=== PATIENT | female | born 2000 | race African-American/Black ===

== ENCOUNTER 2020-05-20 15:53 | Emergency (ER) | payer MEDICAID, OTHER ==
[~2020-05-20] VITALS: Ht 167.6 cm; Wt 50.0 kg
[2020-05-20] MEDS ORDERED: SODIUM CHLORIDE 0.9% 1,000 ML IV ONE (17:00)
[2020-05-20 18:07] LABS: BASOPHILS % 0.3 % (0.0-2.0); HEMATOCRIT. 37.4 % (36.0-48.0); HEMOGLOBIN. 12.4 g/dL (12.0-16.0); LYMPHOCYTES % 9.2 % (20.0-50.0); MEAN CORPUSCULAR HEMOGLOBIN 28.8 pg (28.0-32.0); MEAN CORPUSCULAR VOLUME 86.7 fL (81.0-99.0); MEAN PLATELET VOLUME 9.6 fl (7.4-10.4); MONOCYTES % 3.1 % (2.0-8.0); NEUTROPHILS % 87.4 % (40.0-76.0); PLATELET 201 x1000/uL (130-400); RED BLOOD CELL COUNT 4.32 mill/uL (4.2-5.4); RED CELL DISTRIBUTION WIDTH 12.4 % (11.6-14.6)
[2020-05-20 18:15] LABS: CHLORIDE 105 mEq/L (98-107)
[2020-05-20 18:20] LABS: ETHANOL BLOOD < 10 mg/dL
[2020-05-20 18:25] LABS: HCG SCREEN NEGATIVE
[2020-05-20] MEDS ORDERED: KETOROLAC 15MG/ML VIAL IV ONE (18:45)
[2020-05-20] MEDS ORDERED: ONDANSETRON HCL 4MG/2ML INJ IV ONE (18:45)
[2020-05-20] MEDS ORDERED: FAMOTIDINE 20MG/2ML VIAL IV ONE (18:45)
[2020-05-20 19:12] LABS: CLARITY URINE CLEAR (CLEAR); COLOR URINE YELLOW (YELLOW); KETONES URINE 2+ (NEGATIVE); LEUKOCYTE ESTERASE URINE TRACE (NEGATIVE); NITRITE URINE NEGATIVE (NEGATIVE); OCCULT BLOOD URINE NEGATIVE (NEGATIVE); PH URINE >=9.0 (4.5-8.0); PROTEIN URINE TRACE (NEGATIVE); SPECIFIC GRAVITY URINE 1.019 (1.005-1.030); UROBILINOGEN URINE 0.2 E.U./dL (0.2-1.0)
[2020-05-20 19:32] LABS: *AMPHETAMINES SCREEN URINE NEGATIVE (NEGATIVE); *BARBITURATES SCREEN URINE NEGATIVE (NEGATIVE); *BENZODIAZEPINES SCREEN URINE NEGATIVE (NEGATIVE); *COCAINE SCREEN URINE NEGATIVE (NEGATIVE); PHENCYCLIDINE URINE SCREEN NEGATIVE (NEGATIVE)
[2020-05-20 19:33] LABS: METHADONE URINE SCREEN NEGATIVE (NEGATIVE); OPIATES URINE SCREEN NEGATIVE (NEGATIVE)
[2020-05-20 19:41] LABS: CANNABINOID URINE SCREEN PRESUMTIVE POSITIVE (NEGATIVE)
[2020-05-20] MEDS ORDERED: ONDANSETRON HCL 4MG/2ML INJ IV NR (20:15)
[2020-05-20] MEDS ORDERED: ONDA4TAB5 MT (21:58)
[2020-05-20] MEDS ORDERED: NITR-87 MT (21:58)
[2020-05-20 22:00] VITALS: BP 119/71
[2020-05-20] MEDS ORDERED: NITROFURANTOIN 100MG M/M CAPSULE PO NR (22:00)
== END 2020-05-20 22:30 | disposition home or self-care (01) ==
LOC: ER 15:53
DX: N39.0 Urinary tract infection, site not specified (principal)
CPT/HCPCS: 36415; 71045; 76705; 76856; 80053; 80305; 80307; 80320; 80329; 81003; 81025; 83690; 84703; 85025; 93005; 96374; 96375; 99285; J1885; J2405; J3490; J7030; Z7610; G0480

== ENCOUNTER 2022-08-09 17:40 | Emergency (ER) | payer MEDICAID, OTHER ==
[~2022-08-09] VITALS: Ht 177.8 cm; Wt 53.0 kg
[~2022-08-09 17:40] MED LIST: NITR-87 MT; ONDA4TAB5 MT
[2022-08-09] MEDS ORDERED: SODIUM CHLORIDE 0.9% 1,000 ML IV ONE ×2 (18:15→21:30)
[2022-08-09] MEDS ORDERED: ONDANSETRON HCL 4MG/2ML INJ IV ONE (18:15)
[2022-08-09] MEDS ORDERED: FAMOTIDINE 20MG/2ML VIAL IV ONE (18:15)
[2022-08-09 18:27] LABS: BASOPHILS % 0.1 % (0.0-2.0); HEMATOCRIT. 36.1 % (36.0-48.0); HEMOGLOBIN. 12.1 g/dL (12.0-16.0); LYMPHOCYTES % 10.4 % (20.0-50.0); MEAN CORPUSCULAR HEMOGLOBIN 28.7 pg (28.0-32.0); MEAN CORPUSCULAR VOLUME 85.7 fL (81.0-99.0); MEAN PLATELET VOLUME 8.6 fl (7.4-10.4); MONOCYTES % 3.8 % (2.0-8.0); NEUTROPHILS % 85.7 % (40.0-76.0); PLATELET 206 x1000/uL (130-400); RED BLOOD CELL COUNT 4.21 mill/uL (4.2-5.4); RED CELL DISTRIBUTION WIDTH 12.3 % (11.6-14.6)
[2022-08-09 18:38] LABS: CHLORIDE 100 mEq/L (98-107); HCG SCREEN NEGATIVE
[2022-08-09 18:47] LABS: ETHANOL BLOOD < 10 mg/dL
[2022-08-09] MEDS ORDERED: KETOROLAC 15MG/ML VIAL IV NR (20:45)
[2022-08-09 21:17] VITALS: BP 101/69
[2022-08-09] MEDS ORDERED: ONDA4TAB11 PO (22:22)
[2022-08-09] MEDS ORDERED: VISCOUS LIDOCAINE 2% 15 ML UDC MM PRN (22:30)
== END 2022-08-09 23:10 | disposition home or self-care (01) ==
LOC: ER 17:40
DX: R11.10 Vomiting, unspecified (principal); R10.30 Lower abdominal pain, unspecified; K59.00 Constipation, unspecified; Z87.440 Personal history of urinary (tract) infections
CPT/HCPCS: 36415; 80053; 80320; 83690; 84484; 84703; 85025; 93005; 96361; 96374; 96375; 99284; J1885; J2405; J3490; J7030; Z7610; G0480

== ENCOUNTER 2023-09-19 07:40 | Emergency (ER) | payer OTHER, MEDICAID ==
[~2023-09-19] VITALS: Ht 172.7 cm; Wt 60.0 kg
[~2023-09-19 07:40] MED LIST changes: +ONDA4TAB11 PO
[2023-09-19 07:48] VITALS: BP 119/70; RESP 18; TEMP 98.2; O2SAT 100
[2023-09-19 07:50] VITALS: PULSE 114
[2023-09-19 08:13] LABS: BASOPHILS % 0.6 % (0.0-2.0); EOSINOPHILS % 0.6 % (0.0-5.0); HEMATOCRIT. 40.7 % (36.0-48.0); HEMOGLOBIN. 13.2 g/dL (12.0-16.0); LYMPHOCYTES % 59.5 % (20.0-50.0); MEAN CORPUSCULAR HEMOGLOBIN 28.6 pg (28.0-32.0); MEAN CORPUSCULAR HGB CONC 32.4 g/dL (31.0-37.0); MEAN CORPUSCULAR VOLUME 88.2 fL (81.0-99.0); MEAN PLATELET VOLUME 8.4 fl (7.4-10.4); MONOCYTES % 9.6 % (2.0-8.0); NEUTROPHILS % 29.7 % (40.0-76.0); PLATELET 205 x1000/uL (130-400); RED BLOOD CELL COUNT 4.62 mill/uL (4.2-5.4); RED CELL DISTRIBUTION WIDTH 12.5 % (11.6-14.6); WHITE BLOOD COUNT 3.6 x1000/uL (4.5-11.0)
[2023-09-19 08:26] LABS: CHLORIDE 102 mEq/L (98-107); SODIUM 138 mEq/L (136-145)
[2023-09-19 08:27] LABS: CALCIUM 9.2 mg/dL (8.7-10.4); CARBON DIOXIDE 28 mEq/L (21-32)
[2023-09-19 08:32] LABS: GLUCOSE 92 mg/dL (70-105); UREA NITROGEN BLOOD 11 mg/dL (9-23)
[2023-09-19 08:33] LABS: B-HCG QUANTITATIVE 166 mIU/mL (<3)
[2023-09-19] MEDS: POTASSIUM CHLORIDE 20MEQ TABLET SR PO SCH (09:00)
== END 2023-09-19 11:00 | disposition home or self-care (01) ==
LOC: ER 08:16
DX: O46.91 Antepartum hemorrhage, unspecified, first trimester (principal); Z3A.01 Less than 8 weeks gestation of pregnancy; Z87.440 Personal history of urinary (tract) infections; K59.00 Constipation, unspecified; Z88.0 Allergy status to penicillin
CPT/HCPCS: 36415; 76801; 80048; 81025; 84702; 85025; 86850; 86900; 99284